=== PATIENT | female | born 1935 | race Caucasian/White ===

== ENCOUNTER 2017-05-14 17:17 | Emergency (ER) | payer MEDICARE, OTHER ==
[2017-05-14 22:25] LABS: #Basophils 0.1 thou/uL (0.0-0.2); #Eosinphils 0.1 thou/uL (0.0-0.7); #Lymphocytes 1.8 thou/uL (1.20-3.40); #Monocytes 0.7 thou/uL (0.11-0.59); #Neutrophils 6.3 thou/uL (1.40-6.50); %Basophils 0.9 % (0.0-1.0); %Eosinophils 0.7 % (0.0-10.0); %Lymphocytes 20.2 % (21.0-51.0); %Neutrophils 70.2 % (42.0-75.0); Hemoglobin 13.2 g/dL (12.0-16.0); Mean Corpuscular HGB CONC 32.7 g/dL (32.0-36.0); Mean Corpuscular Hemoglobin 33.3 pg (27.0-31.0); Mean Platelet Volume 7.2 fL (7.4-10.4); Platelet Count 288 thou/uL (130-400); RBC Distribution Width 12.2 % (11.5-14.5); Red Blood Cell (RBC) Count 3.95 mill/uL (4.20-5.40); White Blood Cell (WBC) Count 8.9 thou/uL (4.8-10.8)
[2017-05-14 22:46] LABS: ALT (SGPT) 11 U/L (8-55); AST (SGOT) 15 U/L (5-34); Albumin 3.8 g/dL (3.4-4.8); Alkaline Phosphatase 97 U/L (40-150); Anion Gap 15 mmol/L (10-20); BUN (Urea Nitrogen) 29 mg/dL (9.8-20.1); Bilirubin, Total 0.9 mg/dL (0.2-1.2); Calc. Creatinine Clearance 0 mL/min (70-130); Carbon Dioxide 26 mmol/L (23-31); Chloride 99 mmol/L (98-107); Estimated GFR-MDRD 42; Globulin 3.5 g/dL (2.4-3.5); Glucose 119 mg/dL (83-110); Lipase 11 U/L (8-78); Potassium 3.6 mmol/L (3.5-5.1); Protein, Total 7.3 g/dL (6.0-8.3); Sodium 136 mmol/L (136-145)
[2017-05-14 22:50] LABS: CKMB 1.2 ng/mL (0-6.6); Troponin I Less than 0.010 ng/mL (< 0.028)
--- NOTE | 2017-05-14 23:50 | CT ---
EXAM: NONCONTRAST HEAD CT HISTORY: Fall. Post-traumatic pain. COMPARISON: None. TECHNIQUE: Noncontrast head CT is performed from skull base to skull vertex. FINDINGS: Age-appropriate atrophy. Cortical fuentes-white matter differentiation is preserved. Ventricles and sulci are patent and symmetric. White matter hypodensities due to chronic small-vessel ischemic changes are noted. No parenchymal hemorrhage. No extraaxial hematoma. No midline shift. Basilar cisterns are patent. Calvarium is intact. Adequate aeration of the mastoid air cells. Mild bilateral sphenoid sinus and ethmoidal air cell mucosal disease. Possible right globe prosthesis versus chronic changes of the ri ght globe. IMPRESSION: No intracranial post-traumatic sequelae. POS: [facility]
--- NOTE | 2017-05-14 23:54 | RAD ---
EXAM: CHEST ONE VIEW COMPARISON: 08/13/2016 HISTORY: Shortness of breath. FINDINGS: Endovascular stent projecting over the aortic arch and descending thoracic aorta is again noted. No rmal cardiac silhouette. Pulmonary vessels and hilum are normal. Limited evaluation of the right co stophrenic angle. Chronic changes of the left costophrenic angle. No consolidation or masses. [employer] graham changes in the lung bases are noted. Hiatal hernia projecting over the left lung base is redemon strated. IMPRESSION: No acute cardiopulmonary process. POS: [facility]
--- NOTE | 2017-05-15 00:03 | RAD ---
EXAM: THREE VIEWS LUMBAR SPINE HISTORY: Pain. Status post fall. COMPARISON: 12/06/2010. FINDINGS: Marked scoliosis of the lumbar spine. There is diffuse bone demineralization. There is a moderate c ompression fracture at the L1 vertebral body level. Fracture is noted on CT angiogram of chest 05/23. No additional lumbar spine fractures are appreciated. IMPRESSION: 1. Scoliosis of the lumbar spine. 2. Chronic moderate compression fracture at L1. If there is pain or point tenderness, non-emergent M RI can be performed to assess for vertebral body edema. POS: [facility]
[2017-05-15 00:45] LABS: Bilirubin Negative (Negative); Blood, Urine Negative (Negative); Clarity CLEAR (Clear); Glucose, Urine (Dipstick) Negative (Negative); Leukocyte Negative (Negative); Nitrite Negative (Negative); Protein, Urine (Dipstick) Negative (Neg-Trace); Specific Gravity, Urine 1.025 (1.002-1.036); Urobilinogen 0.2 mg/dL (0.2-1.0)
--- NOTE | 2017-06-08 22:41 | EKG ---
Test Reason : Blood Pressure : / mmHG Vent. Rate : 070 BPM Atrial Rate : 070 BPM P-R Int : 152 ms QRS Dur : 068 ms QT Int : 414 ms P-R-T Axes : 065 027 011 degrees QTc Int : 447 ms Normal sinus rhythm Normal ECG Confirmed by YUSRA NIXON ([id number]), manager editorial ADAN PERALES ([id number]) on 06/08/2017 10:40:32 PM Referred By: Confirmed By:YUSRA NIXON
== END 2017-05-15 00:56 | disposition home or self-care (01) ==
LOC: ERS 17:17
DX: S00.93XA Contusion of unspecified part of head, initial encounter (principal); F32.9 Major depressive disorder, single episode, unspecified; W18.30XA Fall on same level, unspecified, initial encounter
CPT/HCPCS: 36415; 70450; 71045; 72100; 80053; 82553; 83690; 83735; 83880; 84484; 85025; 87086; 87804; 93005; 96360; 96361

== ENCOUNTER 2017-12-13 20:59 | Observation (INO) | payer MEDICARE, OTHER ==
--- NOTE | 2017-12-13 21:47 | RAD ---
RADIOGRAPH CHEST 1 VIEW: Date: 12/13/17 Time: 9:04 p.m. HISTORY: 82-year-old female with syncope. COMPARISON: 05/14/17 FINDINGS: Metallic stent at the descending thoracic aorta. No pulmonary edema or pneumothorax. Retrocardiac mas s represents a moderate sized hiatal hernia. Dextroscoliosis of the mid thoracic spine and levoscolio sis at the thoracolumbar junction. No major interval change. IMPRESSION: 1. Moderate sized hiatal hernia. 2. No acute pulmonary findings. 3. Stent within the descending aorta. 4. S-shaped scoliosis. JN [] POS: [facility]
[2017-12-13 21:57] LABS: #Basophils 0.1 thou/uL (0.0-0.2); #Eosinphils 0.1 thou/uL (0.0-0.7); #Lymphocytes 1.5 thou/uL (1.20-3.40); #Monocytes 0.6 thou/uL (0.11-0.59); #Neutrophils 5.2 thou/uL (1.40-6.50); %Basophils 1.3 % (0.0-1.0); %Eosinophils 1.3 % (0.0-10.0); %Lymphocytes 19.8 % (21.0-51.0); %Monocytes 8.5 % (0.0-10.0); %Neutrophils 69.2 % (42.0-75.0); Hemoglobin 12.7 g/dL (12.0-16.0); Mean Corpuscular HGB CONC 34.4 g/dL (32.0-36.0); Mean Corpuscular Hemoglobin 33.4 pg (27.0-31.0); Mean Corpuscular Volume 97.2 fL (78.0-98.0); Mean Platelet Volume 6.8 fL (7.4-10.4); Platelet Count 246 thou/uL (130-400); RBC Distribution Width 12.3 % (11.5-14.5); Red Blood Cell (RBC) Count 3.81 mill/uL (4.20-5.40); White Blood Cell (WBC) Count 7.5 thou/uL (4.8-10.8)
[2017-12-13 22:17] LABS: ALT (SGPT) 7 U/L (8-55); AST (SGOT) 12 U/L (5-34); Albumin 3.7 g/dL (3.4-4.8); Alkaline Phosphatase 80 U/L (40-150); Anion Gap 15 mmol/L (10-20); BUN (Urea Nitrogen) 37 mg/dL (9.8-20.1); Bilirubin, Total 0.3 mg/dL (0.2-1.2); Calc. Creatinine Clearance 0 mL/min (70-130); Calcium 9.2 mg/dL (7.8-10.44); Carbon Dioxide 23 mmol/L (23-31); Chloride 104 mmol/L (98-107); Estimated GFR-MDRD 27; Glucose 106 mg/dL (83-110); Potassium 3.6 mmol/L (3.5-5.1); Protein, Total 6.7 g/dL (6.0-8.3); Sodium 138 mmol/L (136-145)
[2017-12-13 22:22] LABS: Troponin I Less than 0.010 ng/mL (< 0.028)
[2017-12-14 00:22] LABS: Bilirubin Negative (Negative); Blood, Urine Negative (Negative); Clarity CLOUDY (Clear); Glucose, Urine (Dipstick) Negative (Negative); Leukocyte Large (Negative); Nitrite Negative (Negative); Protein, Urine (Dipstick) Negative (Neg-Trace); Urobilinogen 0.2 mg/dL (0.2-1.0)
[2017-12-14 00:23] LABS: Bacteria/HPF Rare-Few HPF (None Seen); RBC/HPF 0-3 HPF (0-3)
[2017-12-14 00:30] LABS: Pathc Cast-AUWi Flag 5.81 (0-2.49)
[2017-12-14 00:34] LABS: Other Casts/LPF None Seen LPF (0-3 Hyaline)
[2017-12-14] MEDS ORDERED: cefTRIAXone\\ROCEPHIN 1 GM VIAL ONE (01:09)
[2017-12-14 02:25] VITALS: BMI 19.8
[2017-12-14] MEDS ORDERED: Mag-Al 1200 mg/1200 mg/30 ML UDCUP PO PRN (08:09)
[2017-12-14] MEDS ORDERED: Ondansetron HCl/PF 4 MG/2 ML Vial IVP PRN (08:09)
[2017-12-14] MEDS ORDERED: Loperamide HCl 2 MG CAP PO PRN (08:09)
[2017-12-14] MEDS ORDERED: Milk Of Magnesia 30 ML UDCUP PO PRN (08:09)
[2017-12-14] MEDS ORDERED: hydrALAZINE 20 MG/ML VIAL SLOW IVP PRN (08:09)
[2017-12-14] MEDS ORDERED: Acetaminophen 325 MG TAB PO PRN (08:09)
[2017-12-14] MEDS ORDERED: cefTRIAXone\\ROCEPHIN 1 GM in Sodium Chloride 0.9% 100 ML IVPB SCH (08:15)
[2017-12-14] MEDS ORDERED: Sodium Chloride 0.9% 1,000 ML IV SCH (08:15)
[2017-12-14] MEDS ORDERED: Citalopram 20 MG TAB PO SCH (09:00)
[2017-12-14] MEDS ORDERED: Enoxaparin Sodium 30 MG/0.3 ML SYRINGE SC SCH (09:00)
[2017-12-14] MEDS ORDERED: Aspirin 325 mg Enteric Coated Tablet PO SCH (09:00)
--- NOTE | 2017-12-14 10:59 | HP ---
DATE OF ADMISSION: 12/14/2017 PRIMARY CARE PHYSICIAN: Dr. Kuhn. REASON FOR ADMISSION: Syncope. HISTORY OF PRESENT ILLNESS: This is an 82-year-old elderly white female with past medical history of hypertension, aortic aneurysm with aortic stent, depression, and dementia, is presently confused, ca me to the hospital with syncope. Patient is not able to give a history. The patient does not rememb er why she is in the hospital. No family members or caregivers at the bedside. As per the review of the records from ER, the patient was getting a bath and started having dizzy spells with some incohe rent speech and confusion. The patient was out for 2-3 minutes. No history of any fall or hitting h er head. The patient lives in an assisted living. No abdominal pain, no chest pain, no shortness of breath, no nausea, no vomiting, no diarrhea reported. Patient does not remember her medications. N o fever or chills. PAST MEDICAL HISTORY: Positive for hypertension, aortic aneurysm repair, compression fracture, depre ssion, dementia. PAST SURGICAL HISTORY: Appendectomy, aortic stents, right hip surgery, . HOME MEDICATIONS: Need to be updated, current list reports valsartan, hydrochlorothiazide, citalopra m, aspirin, Protonix, and tramadol. ALLERGIES: MORPHINE. FAMILY HISTORY: No history of any heart disease. SOCIAL HISTORY: No smoking, alcohol, or drug abuse. REVIEW OF SYSTEMS: Could not be obtained due to dementia and not able to participate. PHYSICAL EXAMINATION: GENERAL: This is an elderly female in no apparent distress, presently confused. VITAL SIGNS: Temperature 98.0, pulse 90, respiratory rate 18, blood pressure 149/66. HEENT: Atraumatic, normocephalic. Oral mucosa is moist. NECK: Supple, no masses. CARDIOVASCULAR: S1 and S2 heard. Rate and rhythm regular. RESPIRATORY: Clear. GASTROINTESTINAL: Abdomen is soft. Bowel sounds heard. MUSCULOSKELETAL: No tenderness, no edema. DERMATOLOGIC: No skin rash. NEUROLOGIC: Presently confused and awake. No focal neural deficits. Moving all the extremities. PSYCHIATRIC: Dementia present. LABORATORY AND X-RAY DATA: Hemoglobin is 12.7, WBC 7.5, potassium is 3.6, glucose 106, BUN 37, creat inine is 1.7, albumin is 3.7. Chest x-ray showed hiatal hernia, stent in the aorta, and scoliosis. No pulmonary edema. EKG showed sinus rhythm with few PVCs. Urine study with pyuria. ASSESSMENT AND PLAN: 1. Syncopal episode, etiology not clear, most likely hypotension, maybe slight volume depletion. Cr eatinine is slightly elevated. Plan is to have IV fluids 50 mL per hour, maybe total of 1-2 liters i f tolerated and monitor renal function. We will also check echocardiogram and carotid Doppler to rul e out any structural damage to the heart. 2. Urinary tract infection, pyuria present. We will repeat a urinalysis and urine culture. We will give a dose of Rocephin. 3. Acute kidney injury. We will give IV fluids and we will monitor. 4. Hypertension, stable. Currently hold valsartan and hydrochlorothiazide. We will hydrate. We wi ll use p.r.n. medication with hydralazine for blood pressure control. 5. Depression. Continue home medications. We will closely monitor. 6. Dementia. Plan is to observe patient, start her on IV fluids, give one dose of Rocephin, and follow up urine cu lture, and follow up on the echo and carotid Doppler. CODE STATUS: FULL CODE for now, but need clarification. The patient and family members advanc e directives and also check with assisted living. We will have case management consult for discussion of advance directives. We will follow. GI/DVT prophylaxis. We will continue on Lovenox while she is in the hospital.
--- NOTE | 2017-12-14 13:58 | ULT ---
CAROTID DOPPLER ULTRASOUND: Date: 12/14/17 HISTORY: Syncope. COMPARISON: None. TECHNIQUE: Real-time Diana scale, color Doppler, and spectral analysis of the extracranial carotid and vertebral arteries was performed. FINDINGS: Moderate atherosclerotic plaque in the right carotid bulb. No elevated peak systolic velocity within the internal carotid artery. Antegrade flow right vertebral artery. Mild atherosclerotic plaque left carotid bulb. Moderate atherosclerotic plaque proximal internal tabares tid artery. No elevated peak systolic velocity to suggest hemodynamically significant stenosis. Anteg rade flow left vertebral artery. Right ICA/CCA ratio is 1.4. Left ICA/CCA ratio is 1.1. IMPRESSION: No hemodynamically significant stenosis. POS: [facility]
[2017-12-14 15:41] VITALS: BP 152/78
[2017-12-14 15:43] VITALS: TEMP 98.2
[2017-12-14] MEDS ORDERED: Cipro 250 MG TAB PO SCH (20:00)
[2017-12-15] MEDS ORDERED: cefTRIAXone\\ROCEPHIN 1 GM in Sodium Chloride 0.9% 100 ML IVPB SCH (01:00)
--- NOTE | 2017-12-15 02:24 | DIS ---
DATE OF ADMISSION: 12/14/2017 DATE OF DISCHARGE: 12/14/2017 CONSULTS: PROCEDURES: Echo is pending. Carotid Doppler with no significant stenosis. ADMISSION DIAGNOSES: Syncope, hypertension, acute kidney injury, volume depletion. DISCHARGE DIAGNOSES: 1. Syncopal episode, most likely from medications and hypovolemia. 2. Hypovolemia. 3. Urinary tract infection. 4. Acute kidney injury. 5. Hypertension, on diuresis. 6. Dementia. 7. Depression. CHANGE IN MEDICATION: Patient will be changed from valsartan/hydrochlorothiazide to valsartan daily and also added ciprofloxacin for 3 days for UTI. HOSPITAL COURSE: This is an 82-year-old lady with a past medical history of dementia and hypertensio n, who came to the hospital with syncopal episode. The patient was taking a bath and had this blacko ut episode with the caregiver and was taken to the hospital. The patient was monitored appropriately and no cardiac arrhythmia is noted. Patient was getting echocardiogram and carotid Doppler, and car otid Doppler was negative. Echo is pending, but the patient wants to go home and family wants to alfred e her home. Does not want to wait for the results. She also was found to have pyuria, started on an tibiotics, and will be sent home on Cipro. Culture is pending. They want to follow up as an outpati ent with their primary care physician. DISCHARGE DISPOSITION: Home. CONDITION ON DISCHARGE: Stable. DISCHARGE MEDICATIONS: Citalopram 20 mg p.o. daily, Protonix 40 mg p.o. daily, valsartan 320 mg p.o. daily, Cipro 250 p.o. b.i.d., Namenda 10 mg p.o. b.i.d. ALLERGIES: MORPHINE. FOLLOWUP: With primary care physician in 1 week, Dr. Kuhn, and family was advised to stay one day since patient's dementia and family wants to take her home and follow up the test results as outpati ent including urine culture and also echocardiogram. The patient was feeling much better on discharg e, patient was also given IV fluids, NS times 500 mL.
[2017-12-15] MEDS ORDERED: Valsartan 80 MG TAB PO SCH (09:00)
== END 2017-12-14 16:42 | disposition home or self-care (01) ==
LOC: ERS 20:59 → 2SW 12-14 00:10
PROVIDERS: ADMIT Hospitalist; ATTEND Hospitalist
DX: R55 Syncope and collapse (principal); E86.1 Hypovolemia; N39.0 Urinary tract infection, site not specified; N17.9 Acute kidney failure, unspecified; I10 Essential (primary) hypertension; F03.90 Unspecified dementia, unspecified severity, without behavioral disturbance, psychotic disturbance, mood disturbance, and anxiety; F32.9 Major depressive disorder, single episode, unspecified; Z88.8 Allergy status to other drugs, medicaments and biological substances; Z79.82 Long term (current) use of aspirin; Z79.899 Other long term (current) drug therapy
CPT/HCPCS: 71045; 80053; 82553; 82962; 83880; 84484; 85025; 87086; 93005; 93306; 93880; 96361; 96365; 96372; 96374; 97139; 99285; G0378 ×2; G8978; G8979; G8980; 36415; 36416; 81003; 81015; A4216; J0696; J1650

== ENCOUNTER 2018-04-02 09:48 | Emergency (ER) | payer MEDICARE, OTHER ==
[2018-04-02 10:23] LABS: #Eosinphils 0.1 thou/uL (0.0-0.7); #Lymphocytes 0.9 thou/uL (1.20-3.40); #Monocytes 0.4 thou/uL (0.11-0.59); #Neutrophils 4.6 thou/uL (1.40-6.50); %Basophils 0.7 % (0.0-1.0); %Eosinophils 1.8 % (0.0-10.0); %Lymphocytes 14.1 % (21.0-51.0); %Monocytes 7.2 % (0.0-10.0); %Neutrophils 76.1 % (42.0-75.0); Hemoglobin 12.7 g/dL (12.0-16.0); Mean Corpuscular HGB CONC 32.3 g/dL (32.0-36.0); Mean Corpuscular Hemoglobin 31.6 pg (27.0-31.0); Mean Corpuscular Volume 97.7 fL (78.0-98.0); Mean Platelet Volume 7.6 fL (7.4-10.4); Platelet Count 225 thou/uL (130-400); RBC Distribution Width 11.8 % (11.5-14.5); Red Blood Cell (RBC) Count 4.02 mill/uL (4.20-5.40); White Blood Cell (WBC) Count 6.1 thou/uL (4.8-10.8)
[2018-04-02 10:44] LABS: Anion Gap 9 mmol/L (10-20); BUN (Urea Nitrogen) 23 mg/dL (9.8-20.1); Calc. Creatinine Clearance 0 mL/min (70-130); Calcium 9.3 mg/dL (7.8-10.44); Carbon Dioxide 27 mmol/L (23-31); Chloride 105 mmol/L (98-107); Estimated GFR-MDRD 57; Glucose 103 mg/dL (83-110); Potassium 3.9 mmol/L (3.5-5.1); Sodium 137 mmol/L (136-145)
--- NOTE | 2018-04-02 11:56 | RAD ---
RADIOGRAPH CHEST 1 VIEW: HISTORY: An 82-year-old female, status post acute chest trauma from fall. FINDINGS: There is no air space density, pulmonary edema, or pneumothorax. The lateral costophrenic angles are sharp. IMPRESSION: 1. No acute pulmonary findings. 2. Moderate sized hiatal hernia. 3. Long endograft stent treating a descending thoracic aortic aneurysm. theodore [] POS: [facility]
--- NOTE | 2018-04-02 12:00 | RAD ---
TWO VIEWS LEFT HIP: HISTORY: Fall. Pain. FINDINGS: There is diffuse bone demineralization. Visualized left bony pelvis is intact. Contour of the femor al head is maintained. No fracture. Mild loss of hip joint space height. Vascular calcifications a re noted. IMPRESSION: No fracture. POS: [facility]
--- NOTE | 2018-04-02 12:15 | RAD ---
RADIOGRAPH RIGHT HIP THREE VIEWS: 04/02/2018 HISTORY: An 82-year-old female with acute traumatic right hip pain due to fall. FINDINGS: There is an intramedullary nail fixating an old right subtrochanteric fracture of the right femur. T here is a single distal stabilization screw at the intramedullary nail at the distal femoral metaphys is. The proximal portion of the nail is fixated with a gamma nail type component in the femoral head and neck. No dislocation. No high grade degenerative changes of the right hip. Diffuse osteopenia . There is a minimally displaced and mildly angulated acute fracture of the body of the right pubis. IMPRESSION: 1. Acute, traumatic, minimally displaced fracture of the right pubis. 2. Intramedullary nail and gamma nail fixating an old right subtrochanteric femoral fracture. POS: [facility]
--- NOTE | 2018-04-02 12:16 | RAD ---
RADIOGRAPH PELVIS 1 VIEW: DATE: 04/02/2018. HISTORY: An 82-year-old female status post acute pelvic trauma from fall. FINDINGS: Gamma nail fixating an old right intertrochanteric fracture. The pelvic ring appears to be intact. Diffuse severe osteopenia. Levoscoliosis and multilevel severe degenerative disk disease and degener ative facet disease in the lumbar spine. No dislocation of the hips. IMPRESSION: 1. acute fracture of right pubis is better demonstrated on the right hip radiograph of today. See t hat report. 2. Gamma nail fixation of an old right intertrochanteric fracture. 3. Severe lumbar spondylosis with scoliosis. POS: [facility]
== END 2018-04-02 12:11 | disposition home or self-care (01) ==
LOC: ERS 09:48
DX: S32.501A Unspecified fracture of right pubis, initial encounter for closed fracture (principal); I48.91 Unspecified atrial fibrillation; F03.90 Unspecified dementia, unspecified severity, without behavioral disturbance, psychotic disturbance, mood disturbance, and anxiety; F32.9 Major depressive disorder, single episode, unspecified; I10 Essential (primary) hypertension; W19.XXXA Unspecified fall, initial encounter
CPT/HCPCS: 36415; 71045; 72170; 80048; 85025; 93005

== ENCOUNTER 2018-04-29 10:02 | Outpatient (CLI) | payer MEDICARE, OTHER ==
--- NOTE | 2018-04-29 12:19 | RAD ---
AP PELVIS: History: Pubic bone fracture. Comparison: 04-02-18 FINDINGS/IMPRESSION: Post op changes and metallic hardware internally fixing the intertrochanteric fracture of the right p roximal femur is again seen. The fracture of the right pubis is faintly visualized on the current di dy. POS: [facility]
== END 2018-04-29 10:03 | disposition home or self-care (01) ==
LOC: RAD 10:02
PROVIDERS: ATTEND Family Medicine
DX: S32.501A Unspecified fracture of right pubis, initial encounter for closed fracture (principal)
CPT/HCPCS: 72170

== ENCOUNTER 2018-09-14 19:00 | Observation (INO) | payer MEDICARE, OTHER ==
[2018-09-14 19:27] LABS: #Basophils 0.1 thou/uL (0.0-0.2); #Eosinphils 0.1 thou/uL (0.0-0.7); #Lymphocytes 2.4 thou/uL (1.20-3.40); #Monocytes 0.7 thou/uL (0.11-0.59); #Neutrophils 3.8 thou/uL (1.40-6.50); %Basophils 1.5 % (0.0-1.0); %Eosinophils 1.4 % (0.0-10.0); %Lymphocytes 34.3 % (21.0-51.0); %Monocytes 9.1 % (0.0-10.0); %Neutrophils 53.6 % (42.0-75.0); Hemoglobin 13.3 g/dL (12.0-16.0); Mean Corpuscular HGB CONC 32.8 g/dL (32.0-36.0); Mean Corpuscular Hemoglobin 32.2 pg (27.0-31.0); Mean Platelet Volume 7.1 fL (7.4-10.4); Platelet Count 288 thou/uL (130-400); RBC Distribution Width 11.9 % (11.5-14.5); Red Blood Cell (RBC) Count 4.14 mill/uL (4.20-5.40); White Blood Cell (WBC) Count 7.1 thou/uL (4.8-10.8)
--- NOTE | 2018-09-14 19:33 | RAD ---
Portable frontal chest radiograph: 09/14/2018 COMPARISON: 04/02/2018 HISTORY: Chest pain and arm numbness FINDINGS: Heart and mediastinal contours are stable. Stable stent graft material of descending thorac ic aorta. Stable prominent hiatal hernia. No pneumothorax, pleural fluid, lobar consolidation, or alveolar edema. IMPRESSION: Stable appearance of the chest.
[2018-09-14 19:52] LABS: ALT (SGPT) 7 U/L (8-55); AST (SGOT) 14 U/L (5-34); Albumin 3.8 g/dL (3.4-4.8); Alkaline Phosphatase 112 U/L (40-150); Anion Gap 10 mmol/L (10-20); BUN (Urea Nitrogen) 25 mg/dL (9.8-20.1); Bilirubin, Total 0.2 mg/dL (0.2-1.2); Calc. Creatinine Clearance 0 mL/min (70-130); Calcium 9.1 mg/dL (7.8-10.44); Carbon Dioxide 28 mmol/L (23-31); Chloride 103 mmol/L (98-107); Estimated GFR-MDRD 47; Globulin 3.6 g/dL (2.4-3.5); Glucose 91 mg/dL (83-110); Lipase 35 U/L (8-78); Potassium 3.9 mmol/L (3.5-5.1); Protein, Total 7.4 g/dL (6.0-8.3); Sodium 137 mmol/L (136-145)
[2018-09-14] MEDS ORDERED: Nitroglycerin 0.4 MG TAB 1 EACH ONE (20:18)
[2018-09-14] MEDS ORDERED: Aspirin 81 mg Enteric Coated Tablet ONE (20:18)
[2018-09-14] MEDS ORDERED: Benzonatate 100 MG CAP ONE (22:36)
[2018-09-14] MEDS ORDERED: Acetaminophen 325 MG TAB PO PRN (23:25)
[2018-09-14] MEDS ORDERED: Ondansetron PF 4 MG/2 ML Vial IVP PRN (23:25)
[2018-09-14] MEDS ORDERED: Ondansetron ODT 4 MG TAB SL PRN (23:25)
[2018-09-14 23:34] LABS: Troponin I Less than 0.010 ng/mL (< 0.028)
[2018-09-15 02:23] LABS: Troponin I Less than 0.010 ng/mL (< 0.028)
[2018-09-15 04:01] VITALS: TEMP 98.5
[2018-09-15] MEDS ORDERED: Guaifenesin DM 100-10/5 ML UDCUP PO PRN (04:16)
[2018-09-15 08:13] VITALS: BP 135/77
--- NOTE | 2018-09-16 10:56 | SS ---
DATE OF ADMISSION: 09/14/2018 DATE OF DISCHARGE: 09/15/2018 CHIEF COMPLAINT: Chest pain. HISTORY OF PRESENT ILLNESS: The patient is an 83-year-old female, who reported to the emergency room with left-sided chest pain about 5 o'clock yesterday afternoon. The patient's caregiver also reports a cough for several weeks. Denies any fever or shortness of breath. Pain is worse with deep inspiration. Denies any cardiac history. Past medical history is pertinent for hypertension, aortic aneurysm with a stent x1, compression fracture in 2013, AFib, and dementia. Surgical history, appendectomy and aortic stent. The patient reports that her chest pain improved with nitroglycerin. Emergency room physician requested admission based on symptoms and age. The patient was admitted to the observation unit for further management. Troponins x3 are negative. Creatinine was a little bumped at 1.11. This will need to be followed up as an outpatient and rechecked. EKG in the emergency room showed a normal sinus rhythm, beats per minute 69. Conduction, ST segments, and T-waves are normal. Hawkins was normal. On exam this morning, the patient denied any chest pain. Denied any pain at all. The patient's power of medical senior trial attorney, Ashok Mcclellan, was contacted this morning and was told about the negative troponins. The patient's son states that he wanted to take the patient home if troponins were negative, he did not wish any stress testing or any other procedures. So, the patient was subsequently discharged. PAST MEDICAL HISTORY: Hypertension, aortic aneurysm repair, compression fracture, depression, and dementia. PAST SURGICAL HISTORY: Appendectomy, aortic stent x1, and right hip surgery. HOME MEDICATIONS: 1. Zyrtec 10 mg p.o. daily. 2. Vitamin D 1000 units p.o. daily. 3. 20 mg p.o. daily. 4. Losartan 100 mg p.o. daily. 5. Protonix 40 mg p.o. daily. 6. We have added some Tessalon Perles 100 mg p.o. t.i.d. as needed for cough. ALLERGIES: MORPHINE. FAMILY HISTORY: No known cardiac. SOCIAL HISTORY: No smoking, alcohol or drug use. REVIEW OF SYSTEMS: Cannot be obtained due to dementia, not able to participate. PHYSICAL EXAMINATION: VITAL SIGNS: Temperature is 98.5, pulse is 77, respirations are 15, pO2 sats are 95% on room air, and blood pressure is 135/77. CONSTITUTIONAL: The patient is nontoxic appearing. HEENT: Head is atraumatic and normocephalic. Eyes, extraocular muscles are intact. Conjunctiva is normal. ENT, mucous membranes are moist. Mouth exam is normal. NECK: Normal range of motion. Trachea is midline. RESPIRATORY/CHEST: Breath sounds are normal. Good air movement. CARDIOVASCULAR: Regular heart rate and rhythm. Heart sounds are normal. ABDOMEN: Soft and nontender. Bowel sounds are heard. BACK: Normal range of motion. EXTREMITIES: Upper extremity, normal range of motion. Motor strength is normal. Radial pulses are equal. Lower extremity, normal range of motion. Motor strength is normal. Pedal pulses are equal. NEUROLOGIC: Speech is normal. The patient is pleasantly confused. SKIN: Warm and dry. Normal in color. PSYCHIATRIC: She has a normal affect. The patient was discharged home. The patient was in stable condition. The patient should follow up with Dr. Kuhn within the next week. Job ID: [id number]
--- NOTE | 2018-09-20 14:23 | EKG ---
Test Reason : Blood Pressure : / mmHG Vent. Rate : 069 BPM Atrial Rate : 069 BPM P-R Int : 170 ms QRS Dur : 064 ms QT Int : 414 ms P-R-T Axes : 071 047 017 degrees QTc Int : 443 ms Normal sinus rhythm Normal ECG Confirmed by PATSY ABREU ([id number]), manuscript editor ADAN PERALES ([id number]) on 09/20/2018 2:22:48 PM Referred By: Confirmed By:PATSY ABREU
== END 2018-09-15 10:09 | disposition home or self-care (01) ==
LOC: ERS 19:00 → 2SW 23:01
PROVIDERS: ADMIT Internal Medicine; ATTEND Internal Medicine
DX: R07.9 Chest pain, unspecified (principal); Z79.899 Other long term (current) drug therapy; Z95.828 Presence of other vascular implants and grafts
CPT/HCPCS: 71045; 80053; 83690; 84484 ×3; 85025; 93005; 99285; G0378; 36415